=== PATIENT | female | born 1930 | race Caucasian/White ===

== ENCOUNTER 2016-10-09 11:32 | Day surgery (SDC) | payer MEDICARE ==
[2016-10-09] MEDS ORDERED: LIDOCAINE 2% MDV (20MG/ML) 20ML VIAL IV ONE (14:06)
--- NOTE | 2016-10-12 09:10 | Operative Note ---
DATE OF SURGERY: 10/09/2016 SURGEON: Ashwini Vasquez MD OPERATION: COLONOSCOPY. INDICATIONS: This is an 86-year-old female with history of unexplained diarrhea who presented for colonoscopy. POSTOPERATIVE DIAGNOSIS: Normal colon. ANESTHESIA: Per the department of anesthesia, the pulse oximetry was monitored throughout the duration of the procedure to maintain O2 saturation of 90% or greater. Supplemental oxygen was administered via nasal cannula. Cardiac and vital signs were monitored throughout the duration of the procedure, and they were stable. Description of the procedure of colonoscopy and risks and benefits of the procedure including the risk of bleeding and perforation, among others, were explained to the patient who voiced understanding and consented to have the procedure done. Physical exam was performed, and the patient was found stable for sedation. PROCEDURE: The patient was then placed in the left lateral position, and sedation was initiated. Digital rectal exam was performed and showed some external hemorrhoids with no palpable rectal masses. The Olympus PCF-180AL colonoscope was then inserted into the rectum under direct visualization and advanced to the cecum without difficulty. The ileocecal valve and appendiceal orifice were identified and photographed. The colonic mucosa was carefully examined upon introduction of the colonoscope. There were no lesions noted. The colonoscope was then withdrawn while carefully examining the colonic mucosal surfaces. No lesions were noted. Multiple random biopsies were obtained to rule out microscopic colitis. In the rectum, retroflexion was performed and it was normal. The colonoscope was then withdrawn, and the procedures were terminated. The patient tolerated the procedure well without any immediate complications. She remained with stable vital signs and was transferred to the recovery room. RECOMMENDATIONS: 1. The patient should go on a high-fiber diet. 2. We will see her back in the office as needed. Thank you for allowing me to participate in the care of your patient. Ashwini Vasquez MD CC: Estefania BATISTA
== END 2016-10-09 13:50 | disposition home or self-care (01) ==
LOC: HOP 11:32
PROVIDERS: ATTEND Internal Medicine Gastroenterology
DX: R19.7 Diarrhea, unspecified (principal); E78.00 Pure hypercholesterolemia, unspecified; K59.1 Functional diarrhea

== ENCOUNTER 2017-12-31 12:55 | Inpatient (IN) | payer MEDICARE ==
[2017-12-31 14:09] LABS: HEMATOCRIT 42.1 % (35.0-47.0); HEMOGLOBIN 14.2 gm/dl (11.6-16.0); MEAN CORPUSCULAR HEMOGLOBIN 30.3 pg (27-33); MEAN CORPUSCULAR HGB CONC 33.7 g/dl (32-36); MEAN PLATELET VOLUME 10.6 fl (7.4-10.4); PLATELET COUNT 248 K/uL (130-400); RED BLOOD COUNT 4.68 M/uL (3.80-5.40); RED CELL DISTRIBUTION WIDTH 14.1 % (11.5-14.5); WHITE BLOOD COUNT W/O DIFF 6.8 K/uL (4.2-12.2)
[2017-12-31 14:17] LABS: BLOOD UREA NITROGEN 16 mg/dL (8-23); CREATININE 0.8 mg/dL (0.5-0.9); EST GLOMERULAR FILTRATION RATE > 60 mL/min; TOTAL PROTEIN 6.8 g/dL (6.6-8.7)
[2017-12-31 14:19] LABS: GLUCOSE,RANDOM 116 mg/dL (74-109)
[2017-12-31 14:22] LABS: ALB/GLOB RATIO 1.4 (1.1-1.8); ALKALINE PHOSPHATASE 58 U/L (35-104); ALT/SGPT 19 U/L (<33); AST/SGOT 28 U/L (10.0-35.0)
[2017-12-31 14:35] LABS: PLATELET ESTIMATE NORMAL (NORMAL)
--- NOTE | 2017-12-31 15:07 | Emergency Department Record ---
History of Present Illness - General Chief Complaint: General Stated Complaint: SENT BY NEED INFUSION? Time Seen by Provider: 12/31/17 13:45 Source: Patient Mode of Arrival: Ambulatory Limitations: No limitations - History of Present Illness Initial comments: pt was sent over from [place] office for a low sodium. she also according to psychiatric np has been passing out. Onset/Timin -: Days(s) Associated Symptoms: Weakness - Dolores Coma Scale Eye Response: (4) Open spontaneously Motor Response: (6) Obeys commands Verbal Response: (5) Oriented Dolores Total: 15 - Related Data Home Medications Medication Instructions Recorded Confirmed Last Taken Acetaminophen [Non-Aspirin] 325 mg PO Q4H PRN 12/31/17 12/31/17 Unknown Mesalamine [Asacol Hd] 800 mg PO BID PRN 12/31/17 12/31/17 Unknown Allergies Allergy/AdvReac Type Severity Reaction Status Date / Time sulindac Allergy DIARRHEA Verified 12/31/17 13:12 Travel Screening - Travel/Exposure Within Last 30 Days Have you traveled within the last 30 days?: No - Travel/Exposure Within Last Year Have you traveled outside the [place] in the last year?: No - Additonal Travel Details Have you been exposed to anyone with a communicable illness?: No - Travel Symptoms Symptom Screening: None Review of Systems Reviewed: No additional complaints except as noted below Constitutional: Reports: As per HPI, Weakness. Denies: Chills, Fever, Malaise, Night sweats, Weight change Eyes: Reports: As per HPI. Denies: Eye discharge, Eye pain, Photophobia, Vision change ENT: Reports: As per HPI. Denies: Congestion, Dental pain, Ear pain, Epistaxis , Hearing loss, Throat pain Respiratory: Reports: As per HPI. Denies: Cough, Dyspnea, Hemoptysis, Stridor, Wheezes Cardiovascular: Reports: As per HPI. Denies: Arrhythmia, Chest pain, Dyspnea on exertion, Edema, Murmurs, Orthopnea, Palpitations, Paroxysmal nocturnal dyspnea, Rheumatic Fever, Syncope Endocrine: Reports: As per HPI. Denies: Fatigue, Heat or cold intolerance, Polydipsia, Polyuria Gastrointestinal: Reports: As per HPI. Denies: Abdominal pain, Constipation, Diarrhea, Hematemesis, Hematochezia, Melena, Nausea, Vomiting Genitourinary: Reports: As per HPI. Denies: Abnormal menses, Discharge, Dyspareunia, Dysuria, Frequency, Hematuria, Incontinence, Retention, Urgency Musculoskeletal: Reports: As per HPI. Denies: Arthralgia, Back pain, Gout, Joint swelling, Myalgia, Neck pain Skin: Reports: As per HPI. Denies: Bruising, Change in color, Change in hair/ nails, Lesions, Pruritus, Rash Neurological: Reports: As per HPI, Weakness. Denies: Abnormal gait, Confusion, Headache, Numbness, Paresthesias, Seizure, Tingling, Tremors, Vertigo Psychiatric: Reports: As per HPI. Denies: Anxiety, Auditory hallucinations, Depression, Homicidal thoughts, Suicidal thoughts, Visual hallucinations Hematological/Lymphatic: Reports: As per HPI. Denies: Anemia, Blood Clots, Easy bleeding, Easy bruising, Swollen glands Past Medical History - SOCIAL HISTORY Smoking Status: Never smoker Alcohol Use: None Drug Use: None - RESPIRATORY Hx Respiratory Disorders: No - CARDIOVASCULAR Hx Cardio Disorders: Yes Hx Hypertension: Yes Comment:: high cholesterol - NEURO Hx Neuro Disorders: No - GI Hx GI Disorders: No Comment:: diarrhea - Hx Genitourinary Disorders: No - ENDOCRINE Hx Endocrine Disorders: Yes Hx Thyroid Disease: Yes (hypo) - MUSCULOSKELETAL Hx Musculoskeletal Disorders: Yes Hx Arthritis: Yes Comment:: bursitis - PSYCH Hx Psych Problems: No - HEMATOLOGY/ONCOLOGY Hx Hematology/Oncology Disorders: No Family Medical History Any Significant Family History?: Yes Hx HTN: Mother Physical Exam - General General Appearance: Alert, Oriented x3, Cooperative, Mild distress - Head Head exam: Normal inspection - Eye Eye exam: Normal appearance, PERRL, EOMI Pupils: Normal accommodation - ENT ENT exam: Normal exam, Mucous membranes moist, Normal external ear exam, Normal orophraynx, TM's normal bilaterally Ear exam: Normal external inspection. negative: External canal tenderness Nasal Exam: Normal inspection. negative: Discharge, Sinus tenderness Mouth exam: Normal external inspection, Tongue normal Teeth exam: Normal inspection. negative: Dental caries Throat exam: Normal inspection. negative: Tonsillar erythema, Tonsillar exudate - Neck Neck exam: Normal inspection, Full ROM. negative: Tenderness - Respiratory Respiratory exam: Normal lung sounds bilaterally. negative: Respiratory distress - Cardiovascular Cardiovascular Exam: Regular rate, Normal rhythm, Normal heart sounds - GI/Abdominal GI/Abdominal exam: Soft, Normal bowel sounds. negative: Tenderness - Rectal Rectal exam: Deferred - exam: Deferred - Extremities Extremities exam: Normal inspection, Full ROM, Normal capillary refill. negative: Tenderness - Back Back exam: Reports: Normal inspection, Full ROM. Denies: Muscle spasm, Rash noted, Tenderness - Neurological Neurological exam: Alert, Normal gait, Oriented X3, Reflexes normal - Psychiatric Psychiatric exam: Normal affect, Normal mood - Skin Skin exam: Dry, Intact, Normal color, Warm Course Vital Signs 12/31/17 13:16 Temperature 97.8 F Pulse Rate 79 Respiratory 18 Rate Blood Pressure 122/67 Pulse Ox 97 Medical Decision Making - Lab Data Result diagrams: 12/31/17 13:50 12/31/17 13:50 Lab Results 12/31/17 12/31/17 Range/Units 13:50 13:50 WBC 6.8 (4.2-12.2) K/uL RBC 4.68 (3.80-5.40) M/uL Hgb 14.2 (11.6-16.0) gm/dl Hct 42.1 (35.0-47.0) % MCV 90.0 (81-97) fl MCH 30.3 (27-33) pg MCHC 33.7 (32-36) g/dl RDW 14.1 (11.5-14.5) % Plt Count 248 (130-400) K/uL MPV 10.6 H (7.4-10.4) fl Neutrophils % 82.0 H (47-80) % Eosinophils % Not Reportable Basophils % Not Reportable Lymphocytes 12.0 L (16-45) % Monocytes 6.0 (0-9) % Platelet Estimate Normal (NORMAL) RBC Morphology Normal Sodium 124 L (136-145) mmol/L Potassium 4.8 H (3.4-4.5) mmol/L Chloride 86 L (98-107) mmol/L Carbon Dioxide 26.0 (22-29) mmol/L Anion Gap 12.0 (7-16) BUN 16 (8-23) mg/dL Creatinine 0.8 (0.5-0.9) mg/dL Estimated GFR > 60 mL/min Random Glucose 116 H (74-109) mg/dL Calcium 9.0 (8.8-10.2) mg/dL Total Bilirubin 0.50 (0.2-1.0) mg/dL AST 28 (10.0-35.0) U/L ALT 19 (<33) U/L Alkaline Phosphatase 58 (35-104) U/L Total Protein 6.8 (6.6-8.7) g/dL Albumin 4.0 (4.0-5.0) g/dL Globulin 2.8 (1.4-4.8) gm/dL Albumin/Globulin Ratio 1.4 (1.1-1.8) Disposition Disposition: Admit Clinical Impression: Hyponatremia Disposition: Still a Patient at [facility] Decision to Admit: Admit from ER Decision to Admit Date: 12/31/17 Decision to Admit Time: 15:06 Forms: Patient Portal Access Quality - Quality Measures Quality Measures: N/A - Blood Pressure Screening Does Patient Have Any of the Following: No Blood Pressure Classification: Pre-Hypertensive BP Reading Systolic Measurement: 122 Diastolic Measurement: 67 Screening for High Blood Pressure: < Pre-Hypertensive BP, F/U Documented > [ [id number]] Pre-Hypertensive Follow-up Interventions: Follow-up with rescreen every year.
[2017-12-31] MEDS ORDERED: LISINOPRIL 5 MG TABLET PO SCH (16:55)
[2017-12-31] MEDS ORDERED: ACETAMINOPHEN 325 MG TAB PO PRN (16:55)
[2017-12-31] MEDS ORDERED: LEVOTHYROXINE SODIUM 88 MCG TABLET PO SCH (16:55)
[2017-12-31] MEDS ORDERED: 0.9 % SODIUM CHLORIDE 1000ML 1,000 ML IV PRN ×2 (20:58→22:52)
[2017-12-31 21:29] LABS: OSMOLALITY,SERUM 266 mOsm/kg (280-295)
[2017-12-31 21:33] LABS: OSMOLALITY,URINE 372 mOsm/kg (250-1200)
[2017-12-31] MEDS: LISINOPRIL 5 MG TABLET PO SCH (22:21)
[2017-12-31] MEDS: LEVOTHYROXINE SODIUM 88 MCG TABLET PO SCH (22:21)
--- NOTE | 2018-01-01 09:09 | History & Physical ---
History of Present Illness - Date of Service Date of Service for History & Physical: 01/01/18 - History of Present Illness Admitting Diagnosis: hyponatremia and syncope History of Present Illness: Inna Cid is an 87 y/o female sent to ED by PCP for sodium level of 126 in the office with associated syncopal episodes. Patient seen by PCP 12/30 for generalized malaise, weight loss of over 20lb, persistent diarrhea since September, dizziness and recent syncopal episode. Labs drawn at that time showing Na level 126, K+ 5.2, TSH 3.33. 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 Has had chronic diarrhea since 2007 after taking Suldinac for her OA. After stopping the Suldinac she reports diarrhea had resolved but had been having intermittent diarrhea episodes about every 2 years. Last colonoscopy was 1 year ago and was started on Asacol for this. SHe followed up with [facility] in early November this year for the chronic diarrhea and had been given dietary recommendations as though she was having food intolerance. Continued with persistent diarrhea and was started on Budenonide by [facility] which caused the malaise, dizziness, fatigue. Her last Budesonide was 12/27/17. Her next appt with Dr Vasquez is 01/04/18 for EGD. She was recently started on Budesonide 9mg for colitis and since starting it has had metallic taste in her mouth and having difficulty swallowing. Had a syncopal episode 2 years ago, reports she was worked up and was found cardiac status to be normal and was diagnosed with a vagal episode. Last normal Na level was 138 on 08/04/17. PMH includes chronic diarrhea, colitis, hypothyroidism, HTN, OP, hyperlipidemia, venous insufficiency, OA While in ED sodium 124, potassium 4.8, EKG NSR. Urine sodium, serum and urine osmolality pending. Admitted to the floor for further observation, desk monitor, sodium replacement 01/01/18- sitting in chair comfortably. Reports she is feeling better today since starting IV fluids, generalized malaise is nearly resolved, no further dizziness. Has been trying to eat but still reports metallic taste and states food just doesn't taste good but knows she needs to eat. Did have an ensure last night and states "that went down well". No recent antibiotic use. Travel Screening - Travel/Exposure Within Last 30 Days Have you traveled within the last 30 days?: No - Travel/Exposure Within Last Year Have you traveled outside the [place] in the last year?: No - Additonal Travel Details Have you been exposed to anyone with a communicable illness?: No - Travel Symptoms Symptom Screening: None Review of Systems Constitutional: Reports: As per HPI, Weakness. Denies: Chills, Fever, Malaise, Night sweats, Weight change Eyes: Reports: As per HPI. Denies: Eye discharge, Eye pain, Photophobia, Vision change ENT: Reports: As per HPI. Denies: Congestion, Dental pain, Ear pain, Epistaxis , Hearing loss, Throat pain Respiratory: Reports: As per HPI. Denies: Cough, Dyspnea, Hemoptysis, Stridor, Wheezes Cardiovascular: Reports: As per HPI. Denies: Arrhythmia, Chest pain, Dyspnea on exertion, Edema, Murmurs, Orthopnea, Palpitations, Paroxysmal nocturnal dyspnea, Rheumatic Fever, Syncope Endocrine: Reports: As per HPI. Denies: Fatigue, Heat or cold intolerance, Polydipsia, Polyuria Gastrointestinal: Reports: As per HPI. Denies: Abdominal pain, Constipation, Diarrhea, Hematemesis, Hematochezia, Melena, Nausea, Vomiting Genitourinary: Reports: As per HPI. Denies: Abnormal menses, Discharge, Dyspareunia, Dysuria, Frequency, Hematuria, Incontinence, Retention, Urgency Musculoskeletal: Reports: As per HPI. Denies: Arthralgia, Back pain, Gout, Joint swelling, Myalgia, Neck pain Skin: Reports: As per HPI. Denies: Bruising, Change in color, Change in hair/ nails, Lesions, Pruritus, Rash Neurological: Reports: As per HPI, Weakness. Denies: Abnormal gait, Confusion, Headache, Numbness, Paresthesias, Seizure, Tingling, Tremors, Vertigo Psychiatric: Reports: As per HPI. Denies: Anxiety, Auditory hallucinations, Depression, Homicidal thoughts, Suicidal thoughts, Visual hallucinations Hematological/Lymphatic: Reports: As per HPI. Denies: Anemia, Blood Clots, Easy bleeding, Easy bruising, Swollen glands Past Medical History - SOCIAL HISTORY Smoking Status: Never smoker Alcohol Use: Rare Drug Use: None - RESPIRATORY Hx Respiratory Disorders: No - CARDIOVASCULAR Hx Cardio Disorders: Yes Hx Hypertension: Yes - NEURO Hx Neuro Disorders: No - GI Hx GI Disorders: No Comment:: diarrhea - Hx Genitourinary Disorders: No - ENDOCRINE Hx Endocrine Disorders: Yes Hx Thyroid Disease: Yes (hypo) - MUSCULOSKELETAL Hx Musculoskeletal Disorders: Yes Hx Arthritis: Yes Comment:: bursitis - PSYCH Hx Psych Problems: No - HEMATOLOGY/ONCOLOGY Hx Hematology/Oncology Disorders: No Family Medical History Any Significant Family History?: Yes Hx HTN: Mother H&P Meds/Allergies - Allergies Allergies: Allergies Allergy/AdvReac Type Severity Reaction Status Date / Time sulindac Allergy DIARRHEA Verified 12/31/17 13:12 - Home Medications Home Medications Medication Instructions Recorded Confirmed Last Taken Acetaminophen [Non-Aspirin] 325 mg PO Q4H PRN 12/31/17 12/31/17 Unknown Mesalamine [Asacol Hd] 800 mg PO BID PRN 12/31/17 12/31/17 Unknown - Active Medications Active Medications: Current Medications Acetaminophen (Tylenol 325mg) 650 mg PO Q6H PRN PRN Reason: PAIN - MILD(1-4)/FEVER Sodium Chloride () 1,000 mls @ 75 mls/hr IV .[id number] PRN PRN Reason: LARGE VOLUME IV Levothyroxine Sodium (Synthroid) 88 mcg PO QHS [facility] Last Admin: 12/31/17 22:21 Dose: 88 mcg Lidocaine (Lidoderm) 1 each TOP DAILY [facility] Lisinopril (Zestril) 5 mg PO QHS [facility] Last Admin: 12/31/17 22:21 Dose: 5 mg Non-Formulary Medication (Lactobacillus Acidophilus/Pect [Acidophilus-Pectin Capsule]) 1 each PO DAILY [facility] Physical Exam - Vital Signs Vital Signs: Vital Signs - Last 24 Hrs Temp Pulse Pulse Resp BP BP Pulse Ox 01/01/18 08:00 97.7 F 77 18 114/57 95 01/01/18 00:00 97.6 F 71 16 157/85 98 12/31/17 21:00 71 16 12/31/17 18:21 83 18 12/31/17 16:55 98 F 83 18 141/93 95 12/31/17 15:50 74 16 120/60 98 12/31/17 13:16 97.8 F 79 18 122/67 97 - General General Appearance: Alert, Oriented x3, Cooperative Limitations: No limitations - Head Head exam: Normal inspection - Eye Eye exam: Normal appearance, PERRL, EOMI Pupils: Normal accommodation - ENT ENT exam: Normal exam, Mucous membranes moist, Normal external ear exam, Normal orophraynx, TM's normal bilaterally Ear exam: Normal external inspection. negative: External canal tenderness Nasal Exam: Normal inspection. negative: Discharge, Sinus tenderness Mouth exam: Normal external inspection, Tongue normal Teeth exam: Normal inspection. negative: Dental caries Throat exam: Normal inspection. negative: Tonsillar erythema, Tonsillar exudate - Neck Neck exam: Normal inspection, Full ROM. negative: Tenderness - Respiratory Respiratory exam: Normal lung sounds bilaterally. negative: Respiratory distress - Cardiovascular Cardiovascular Exam: Regular rate, Normal rhythm, Normal heart sounds Peripheral Pulses: 3+: Dorsalis Pedis (R), Dorsalis Pedis (L) - GI/Abdominal GI/Abdominal exam: Soft, Normal bowel sounds. negative: Tenderness - Rectal Rectal exam: Deferred - exam: Deferred - Extremities Extremities exam: Normal inspection, Full ROM, Normal capillary refill. negative: Pedal edema, Tenderness - Back Back exam: Reports: Normal inspection, Full ROM. Denies: Muscle spasm, Rash noted, Tenderness - Neurological Neurological exam: Alert, Normal gait, Oriented X3, Reflexes normal - Psychiatric Psychiatric exam: Normal affect, Normal mood - Skin Skin exam: Dry, Intact, Normal color, Warm Results - Labs Result Diagrams: 12/31/17 13:50 12/31/17 13:50 Labs Last 24 Hours: Laboratory Results - last 24 hr 12/31/17 12/31/17 12/31/17 06:15 13:50 13:50 WBC 6.8 RBC 4.68 Hgb 14.2 Hct 42.1 MCV 90.0 MCH 30.3 MCHC 33.7 RDW 14.1 Plt Count 248 MPV 10.6 H Neutrophils % 82.0 H Eosinophils % Not Reportable Basophils % Not Reportable Lymphocytes 12.0 L Monocytes 6.0 Platelet Estimate Normal RBC Morphology Normal Sodium 127 L 124 L Potassium 4.6 H 4.8 H Chloride 92 L 86 L Carbon Dioxide 25.0 26.0 Anion Gap 10.0 12.0 BUN 12 16 Creatinine 0.6 0.8 Estimated GFR > 60 > 60 Random Glucose 80 116 H Serum Osmolality Uric Acid Calcium 8.1 L 9.0 Total Bilirubin 0.50 AST 28 ALT 19 Alkaline Phosphatase 58 Total Protein 6.8 Albumin 4.0 Globulin 2.8 Albumin/Globulin Ratio 1.4 12/31/17 12/31/17 13:50 20:55 WBC RBC Hgb Hct MCV MCH MCHC RDW Plt Count MPV Neutrophils % Eosinophils % Basophils % Lymphocytes Monocytes Platelet Estimate RBC Morphology Sodium Potassium Chloride Carbon Dioxide Anion Gap BUN Creatinine Estimated GFR Random Glucose Serum Osmolality Cancelled Uric Acid 4.70 Calcium Total Bilirubin AST ALT Alkaline Phosphatase Total Protein Albumin Globulin Albumin/Globulin Ratio VTE H&P Assessment - Risk for VTE Risk for VTE: Yes Risk Level: Moderate Risk Assessment Date: 01/01/18 Risk Assessment Time: 09:09 VTE Orders Placed or Will Be Placed: Yes Plan - Inpatient Certification Inpatient Certification: Admit to inpatient care: Based on my medical assessment, after consideration of patient's risk factors (age, co-morbidities and patient presenting symptoms and acuity), I expect that this patient will remain in the hospital greater than or equal to two midnights and that the services needed warrant inpatient care because: Patient Risk Factors: [advanced age, hyponatremia, chronic diarrhea] Estimated length of stay: [48-72 hours] The patient may reasonably be expected to be discharged or transferred to a hospital within 96 hours after admission to [facility]. Services needed: [nursing, IV fluids, PT/OT] Post hospital care (if known): [] I certify that my determination is in accordance with my understanding of Medicare requirements for reasonable and necessary inpatient services. 01/01/18 09:09 - Detailed Diagnosis and Plan (1) Hyponatremia Current Visit: Yes Status: Acute Base Code: E87.1 - HYPO-OSMOLALITY AND HYPONATREMIA Comment: 01/01/18 - Na 124 in ED - serum osmolality 266 - awaiting urine osmolality and sodium - stool studies ordered r/o acute infectious process - gentle IV hydration with NS @ 75ml/hr - strict I&O. Should urine output exceed 100ml/hr will adjust sodium replacement - chronic history of diarrhea/colitis - follows with Dr Vasquez (GI), next appointment 01/04/18 for EGD - recently began Budesonide 9mg for colitis with subsequent metallic taste in mouth, difficulty swallowing- stopped taking 12/29/17 - syncopal episode 12/29- stopped taking lisinopril at that time for fear of hypotension and dehydration (2) HTN (hypertension) Current Visit: Yes Status: Acute Base Code: I10 - ESSENTIAL (PRIMARY) HYPERTENSION Comment: 01/01/18 - Lisinopril 10mg QD (3) Hypothyroid Current Visit: Yes Status: Acute Base Code: E03.9 - HYPOTHYROIDISM, UNSPECIFIED Comment: 01/01/18 - TSH 12/30- 3.33 - continue Synthroid 88mcg QD (4) DVT prophylaxis Current Visit: No Status: Acute Base Code: [id number] - Comment: 12/31/17 - nursing to encourage frequent ambulation (5) Full code status Current Visit: No Status: Acute Base Code: Z78.9 - OTHER SPECIFIED HEALTH STATUS Comment: 01/01/18
[2018-01-01 11:24] LABS: BLOOD UREA NITROGEN 12 mg/dL (8-23); CREATININE 0.6 mg/dL (0.5-0.9); EST GLOMERULAR FILTRATION RATE > 60 mL/min; GLUCOSE,RANDOM 80 mg/dL (74-109)
[2018-01-01] MEDS: LIDOCAINE 5% PATCH TOP SCH (11:43)
[2018-01-01] MEDS: PSYLLIUM HUSK/ASPARTAME 3.4 GM POWD.PACK PO SCH (11:43)
[2018-01-01] MEDS: LISINOPRIL 5 MG TABLET PO SCH (23:03)
[2018-01-01] MEDS: LEVOTHYROXINE SODIUM 88 MCG TABLET PO SCH (23:03)
[2018-01-02 07:10] LABS: BLOOD UREA NITROGEN 9 mg/dL (8-23); CREATININE 0.4 mg/dL (0.5-0.9); EST GLOMERULAR FILTRATION RATE > 60 mL/min; GLUCOSE,RANDOM 85 mg/dL (74-109)
[2018-01-02] MEDS ORDERED: BIFIDOBACTERIUM INFANTIS 4 MG CAPSULE PO SCH (10:00)
--- NOTE | 2018-01-02 10:20 | Discharge Summary ---
Providers Discharge Summary Date: 01/02/18 Date of admission: 12/31/17 16:39 Expected Date of Discharge: 01/02/18 Attending physician: ROSEANNE US Primary care physician: ROSEANNE US Physical Exam - Vital Signs Vital Signs: Vital Signs - Last 24 Hrs Temp Pulse Resp BP BP Pulse Ox 01/02/18 08:56 14 01/02/18 00:00 97.5 F L 63 16 120/76 96 01/01/18 21:00 71 16 01/01/18 16:43 97.7 F 114/57 01/01/18 16:00 98.4 F 71 16 122/72 96 - General General Appearance: Alert, Oriented x3, Cooperative Limitations: No limitations - Head Head exam: Normal inspection - Eye Eye exam: Normal appearance, PERRL, EOMI Pupils: Normal accommodation - ENT ENT exam: Normal exam, Mucous membranes moist, Normal external ear exam, Normal orophraynx, TM's normal bilaterally Ear exam: Normal external inspection. negative: External canal tenderness Nasal Exam: Normal inspection. negative: Discharge, Sinus tenderness Mouth exam: Normal external inspection, Tongue normal Teeth exam: Normal inspection. negative: Dental caries Throat exam: Normal inspection. negative: Tonsillar erythema, Tonsillar exudate - Neck Neck exam: Normal inspection, Full ROM. negative: Tenderness - Respiratory Respiratory exam: Normal lung sounds bilaterally. negative: Respiratory distress - Cardiovascular Cardiovascular Exam: Regular rate, Normal rhythm, Normal heart sounds Peripheral Pulses: 3+: Dorsalis Pedis (R), Dorsalis Pedis (L) - GI/Abdominal GI/Abdominal exam: Soft, Normal bowel sounds. negative: Tenderness - Rectal Rectal exam: Deferred - exam: Deferred - Extremities Extremities exam: Normal inspection, Full ROM, Normal capillary refill. negative: Pedal edema, Tenderness - Back Back exam: Reports: Normal inspection, Full ROM. Denies: Muscle spasm, Rash noted, Tenderness - Neurological Neurological exam: Alert, Normal gait, Oriented X3, Reflexes normal - Psychiatric Psychiatric exam: Normal affect, Normal mood - Skin Skin exam: Dry, Intact, Normal color, Warm Hospitalization - Hospitalization Admission Diagnosis: hyponatremia and syncope - Problem List/Discharge Diagnosis (1) Hyponatremia Status: Acute Base Code: E87.1 - HYPO-OSMOLALITY AND HYPONATREMIA Comment: - Na 124 in ED-->131 - serum osmolality 266 - awaiting urine sodium - urine osmolality normal - stool studies negative for acute process - gentle IV hydration with NS @ 75ml/hr - strict I&O. Should urine output exceed 100ml/hr will adjust sodium replacement - chronic history of diarrhea/colitis - follows with Dr Vasquez (GI), next appointment 01/04/18 for EGD - recently began Budesonide 9mg for colitis with subsequent metallic taste in mouth, difficulty swallowing- stopped taking 12/29/17 - syncopal episode 12/29- stopped taking lisinopril at that time for fear of hypotension and dehydration - Metamucil given to help loose stools- did have improvement - Advised she drink 8oz broth daily while having persistent diarrhea (2) HTN (hypertension) Status: Acute Base Code: I10 - ESSENTIAL (PRIMARY) HYPERTENSION Comment: 01/02 - Lisinopril 10mg QD (3) Hypothyroid Status: Acute Base Code: E03.9 - HYPOTHYROIDISM, UNSPECIFIED Comment: 01/02/18 - TSH 12/30- 3.33 - continue Synthroid 88mcg QD (4) DVT prophylaxis Status: Acute Base Code: [id number] - Comment: 01/02/18 - nursing to encourage frequent ambulation (5) Full code status Status: Acute Base Code: Z78.9 - OTHER SPECIFIED HEALTH STATUS Comment: - Hospitalization Course Disposition: Home, Self-Care Hospital Course: Inna Cid is an 87 y/o female sent to ED by PCP for sodium level of 126 in the office with associated syncopal episodes. Patient seen by PCP 12/30 for generalized malaise, weight loss of over 20lb, persistent diarrhea since September, dizziness and recent syncopal episode. Labs drawn at that time showing Na level 126, K+ 5.2, TSH 3.33. 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 Has had chronic diarrhea since 2007 after taking Suldinac for her OA. After stopping the Suldinac she reports diarrhea had resolved but had been having intermittent diarrhea episodes about every 2 years. Last colonoscopy was 1 year ago and was started on Asacol for this. SHe followed up with [facility] in early November this year for the chronic diarrhea and had been given dietary recommendations as though she was having food intolerance. Continued with persistent diarrhea and was started on Budenonide by [facility] which caused the malaise, dizziness, fatigue. Her last Budesonide was 12/27/17. Her next appt with Dr Vasquez is 01/04/18 for EGD. She was recently started on Budesonide 9mg for colitis and since starting it has had metallic taste in her mouth and having difficulty swallowing. Had a syncopal episode 2 years ago, reports she was worked up and was found cardiac status to be normal and was diagnosed with a vagal episode. Last normal Na level was 138 on 08/04/17. PMH includes chronic diarrhea, colitis, hypothyroidism, HTN, OP, hyperlipidemia, venous insufficiency, OA While in ED sodium 124, potassium 4.8, EKG NSR. Urine sodium, serum and urine osmolality pending. Admitted to the floor for further observation, personnel monitor, sodium replacement 01/01/18- sitting in chair comfortably. Reports she is feeling better today since starting IV fluids, generalized malaise is nearly resolved, no further dizziness. Has been trying to eat but still reports metallic taste and states food just doesn't taste good but knows she needs to eat. Did have an ensure last night and states "that went down well". No recent antibiotic use. 01/02/18- had significant improvement in dizziness and feelings of malaise after initiation of IV fluids. Had been ambulating the halls frequently during her stay. Feels asymptomatic today. Sodium improved nicely with IV fluids and fluid restriction. Work up for SIADH negative. She responded well to metamucil. Encouraged her to drink 8oz broth daily while she was still having diarrhea. Is due to have EGD tomorrow as scheduled. 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 EKG NOW Abnormal Labs: Abnormal Lab Results 12/31/17 12/31/17 12/31/17 Range/Units 13:50 13:50 17:57 MPV 10.6 H (7.4-10.4) fl Neutrophils % 82.0 H (47-80) % Lymphocytes 12.0 L (16-45) % Sodium 124 L (136-145) mmol/L Potassium 4.8 H (3.4-4.5) mmol/L Chloride 86 L (98-107) mmol/L Creatinine (0.5-0.9) mg/dL Random Glucose 116 H (74-109) mg/dL Serum Osmolality 266 L (280-295) mOsm/kg Calcium (8.8-10.2) mg/dL 01/01/18 01/02/18 Range/Units 06:15 06:15 MPV (7.4-10.4) fl Neutrophils % (47-80) % Lymphocytes (16-45) % Sodium 127 L 131 L (136-145) mmol/L Potassium 4.6 H (3.4-4.5) mmol/L Chloride 92 L 96 L (98-107) mmol/L Creatinine 0.4 L (0.5-0.9) mg/dL Random Glucose (74-109) mg/dL Serum Osmolality (280-295) mOsm/kg Calcium 8.1 L 7.9 L (8.8-10.2) mg/dL Condition at Discharge: (1) Good Discharge Medications - Discharge Medications Home Medications: Ambulatory Orders Calcium Carb, Citrate/Vit D3 [Calcium + D3 ER Tablet] 1 each PO DAILY 08/20/15 [ Last Taken 1 Day Ago ~05/21/16] Cholecalciferol (Vitamin D3) [Vitamin D3] 1,000 unit PO DAILY tab 08/20/15 [ Last Taken 1 Day Ago ~05/21/16] Gingko Biloba 1 tab PO DAILY 08/20/15 [Last Taken 1 Day Ago ~05/21/16] Biotin 1,500 mcg PO DAILY cap 02/20/16 [Last Taken 1 Day Ago ~05/21/16] Lactobacillus Acidophilus/Pect [Acidophilus-Pectin Capsule] 1 each PO DAILY cap 02/20/16 [Last Taken 1 Day Ago ~05/21/16] Budesonide [Budesonide EC] 9 mg PO QD #90 cap 12/30/17 [Last Taken Unknown] Acetaminophen [Non-Aspirin] 325 mg PO Q4H PRN 12/31/17 [Last Taken Unknown] Mesalamine [Asacol Hd] 800 mg PO BID PRN 12/31/17 [Last Taken Unknown] Acetaminophen [Tylenol 325Mg] 650 mg PO Q6H PRN tablet 01/02/18 [Last Taken Unknown] Discharge Plan - Discharge Instructions Instructions: Hyponatremia (DC) Additional Instructions: Please drink one serving beef or chicken broth daily until seen by Dr Us ([facility]) Please follow up with [facility] (Dr Us or Julianna MET[employer] TEACHER next week) Continue current medications except Potassium tablets May move forward with EGD as scheduled next week Continue over the counter Metamucil daily Quality Measures - Quality Measures Quality Measures: Advance Directives, Documentation of Current Medications in Medical Record, Elder Maltreatment Screen and Follow-Up Plan, Screening for High Blood Pressure and F/U Documented - Current Medications Quality Measure: Measure #130: Documentation of Current Medications Documentation of Current Medications: <Current Medications Documented/Reviewed> [[id number]] - Blood Pressure Screening Quality Measure: Screening for High Blood Pressure and Follow-Up Documented Does Patient Have Any of the Following: Active Dx of HTN Blood Pressure Classification: Normal BP Reading Systolic Measurement: 114 Diastolic Measurement: 57 Screening for High Blood Pressure: Patient Exclusion, Hx of HTN [G9744] - Advance Directives Quality Measure: Measure #47: Care Plan Advance Directives Established: Yes Advance Directives Information Provided To Patient: No Advance Directives on File: No Living Will: Yes Power of Carton Inspector: Yes Power of Carton Inspector Name: VERNON CHUN Advance Care Planning: <Care Plan/Decision Maker Documented; Discussed & Documented> [1549F] - Elder Abuse Suspicion Index Screening: Elder Abuse Suspicion Index Screening Rely on people for bathing, dressing, shopping, banking, etc: No Prevented from getting food, clothes, medication, etc: No Made to feel shamed or threatened by someone: No Forced to sign papers or use money against will: No Feel afraid, touched in ways not wanted or hurt physically: No Poor eye contact, withdrawn, malnourished, cuts or bruises: No Screening Result: Negative result EASI Reference Information: Tramaine QUINONEZ, Lucita C, Lainey D, John Soler.Development and validation of a tool to assist physicians identification of elder abuse: The Elder Abuse Suspicion Index (EASI ). Journal of Elder Abuse and Neglect, 2008; 20 (3): 276-300. - Elder Maltreatment Screen Quality Measures: Elder Maltreatment Screen and Follow-Up Plan Elder Maltreatment Screen: <Negative, No Follow-Up Plan Required> [G8734]
[2018-01-02] MEDS: PSYLLIUM HUSK/ASPARTAME 3.4 GM POWD.PACK PO SCH (10:33)
[2018-01-02] MEDS: LIDOCAINE 5% PATCH TOP SCH (10:45)
== END 2018-01-02 11:39 | disposition home or self-care (01) | DRG 641 ==
LOC: ER 12:55 → MEDSURG 16:39
PROVIDERS: ADMIT Internal Medicine; ATTEND Internal Medicine
DX: E87.1 Hypo-osmolality and hyponatremia (principal); R55 Syncope and collapse; K52.9 Noninfective gastroenteritis and colitis, unspecified; R53.1 Weakness; I10 Essential (primary) hypertension; E78.00 Pure hypercholesterolemia, unspecified; E78.5 Hyperlipidemia, unspecified; E03.9 Hypothyroidism, unspecified; I87.2 Venous insufficiency (chronic) (peripheral); M19.90 Unspecified osteoarthritis, unspecified site
CPT/HCPCS: 80048; 80053; 83930; 83935; 84550; 85027; 87427; 87493; 89055; 93005; 93010; 99223; 99239; 99285

== ENCOUNTER 2018-01-04 12:04 | Emergency (ER) | payer MEDICARE ==
[2018-01-04] MEDS ORDERED: ONDANSETRON HCL IV 4 MG/2 ML VIAL IVP ONE (12:43)
[2018-01-04] MEDS ORDERED: PANTOPRAZOLE SODIUM IV 40 MG VIAL IVP ONE (12:43)
[2018-01-04] MEDS ORDERED: ACETAMINOPHEN 1,000 MG/100 ML BTL IVPB ONE (12:43)
[2018-01-04 12:52] LABS: BASO % 0.2 % (0-6); EOS % 0.2 % (0-6); GRAN % 78.7 % (47-80); HEMATOCRIT 37.8 % (35.0-47.0); HEMOGLOBIN 12.6 gm/dl (11.6-16.0); LYMPH % 16.1 % (16-45); MEAN CELL VOLUME 91.3 fl (81-97); MEAN CORPUSCULAR HEMOGLOBIN 30.4 pg (27-33); MEAN CORPUSCULAR HGB CONC 33.3 g/dl (32-36); MEAN PLATELET VOLUME 10.4 fl (7.4-10.4); MONO % 4.8 % (0-9); PLATELET COUNT 280 K/uL (130-400); RED BLOOD COUNT 4.14 M/uL (3.80-5.40); RED CELL DISTRIBUTION WIDTH 14.4 % (11.5-14.5)
--- NOTE | 2018-01-04 12:53 | Emergency Department Record ---
History of Present Illness - General Chief Complaint: Abdominal Pain Stated Complaint: ABD PAIN Time Seen by Provider: 01/04/18 12:41 Source: Patient, Family Mode of Arrival: EMS Limitations: No limitations - History of Present Illness Initial Comments: 87 yo female presents with abdominal pain. She states she had an EGD this morning with Dr Vasquez at 8:45. She states that she had a biopsy taken. She did well after waking up and had juice without pain or nausea. She went home and took her daily medications. She then developed burping, nausea, and intermittent abdominal pain. No chest pain. She called the office and was directed to the ED. MD Complaint: Abdominal pain Onset/Timin -: Hour(s) Location: Diffuse, Suprapubic Radiation: None Migration to: No migration Severity: Moderate Severity scale (1-10): 9 Quality: Cramping, Sharp Consistency: Constant Improves With: Nothing Worsens With: Nothing Associated Symptoms: Nausea - Related Data Patient : No Previous Rx's Medication Instructions Recorded Acetaminophen [Tylenol 325Mg] 650 mg PO Q6H PRN tablet 01/02/18 Oxycodone HCl/Acetaminophen 1 each PO Q6H PRN #8 tab 01/04/18 [Percocet 7.5mg/325mg] Allergies Allergy/AdvReac Type Severity Reaction Status Date / Time sulindac Allergy DIARRHEA Verified 12/31/17 13:12 Travel Screening - Travel/Exposure Within Last 30 Days Have you traveled within the last 30 days?: No Review of Systems Constitutional: Denies: Chills, Fever, Malaise, Weakness Eyes: Denies: Eye discharge ENT: Denies: Congestion, Throat pain Respiratory: Denies: Cough, Dyspnea Cardiovascular: Denies: Chest pain, Syncope Endocrine: Denies: Fatigue Gastrointestinal: Reports: Abdominal pain, Nausea. Denies: Constipation, Diarrhea, Hematemesis, Hematochezia, Melena, Vomiting Genitourinary: Denies: Dysuria, Urgency Musculoskeletal: Denies: Arthralgia, Back pain, Myalgia Skin: Denies: Bruising, Change in color, Rash Neurological: Denies: Headache Psychiatric: Denies: Anxiety Hematological/Lymphatic: Denies: Blood Clots, Easy bleeding, Easy bruising Past Medical History - SOCIAL HISTORY Smoking Status: Never smoker - RESPIRATORY Hx Respiratory Disorders: No - CARDIOVASCULAR Hx Cardio Disorders: Yes Hx Hypertension: Yes - NEURO Hx Neuro Disorders: No - GI Hx GI Disorders: No Comment:: diarrhea - Hx Genitourinary Disorders: No - ENDOCRINE Hx Endocrine Disorders: Yes Hx Thyroid Disease: Yes (hypo) - MUSCULOSKELETAL Hx Musculoskeletal Disorders: Yes Hx Arthritis: Yes Comment:: bursitis - PSYCH Hx Psych Problems: No - HEMATOLOGY/ONCOLOGY Hx Hematology/Oncology Disorders: No Family Medical History Any Significant Family History?: Yes Hx HTN: Mother Physical Exam - General General Appearance: Alert, Oriented x3, Cooperative, No acute distress Limitations: No limitations - Head Head exam: Normal inspection - Eye Eye exam: Normal appearance. negative: Conjunctival injection, Scleral icterus - ENT ENT exam: Normal exam Ear exam: Normal external inspection Nasal Exam: Normal inspection Mouth exam: Normal external inspection - Neck Neck exam: Normal inspection - Respiratory Respiratory exam: Normal lung sounds bilaterally. negative: Respiratory distress - Cardiovascular Cardiovascular Exam: Regular rate, Normal rhythm, Normal heart sounds - GI/Abdominal GI/Abdominal exam: Soft, Tenderness (very soft, mild epigastric tenderness). negative: Distended, Guarding, Rebound, Rigid - Rectal Rectal exam: Deferred - exam: Deferred - Extremities Extremities exam: Normal inspection - Back Back exam: Denies: CVA tenderness (R), CVA tenderness (L) - Neurological Neurological exam: Alert, Oriented X3 - Psychiatric Psychiatric exam: Normal affect, Normal mood - Skin Skin exam: Dry, Intact, Normal color, Warm Course Vital Signs 01/04/18 12:10 Temperature 97.3 F L Pulse Rate 64 Respiratory 20 Rate Blood Pressure 97/59 Pulse Ox 95 - Reevaluation(s) Reevaluation #1: EMR reviewed. Recent admission for low sodium at [facility]. 01/04/18 12:59 The XR was reviewed with Dr Hagan. No definite free air irregular area over the right HD may be atelectasis vs tiny FA. Radiologist recommends CT of the abdomen. 01/04/18 13:01 No acute changes on the CBC 01/04/18 13:47 Sodium is 130 otherwise no changes on the CMP 01/04/18 13:56 01/04/18 14:07 Radiology was called to expedite the read of the CT scan 01/04/18 14:24 Dr Hagan called and informed me FA is noted in the abdomen with small amount of free fluid Dr Ramirez was called and recommends transfer to the [facility] [place] Franco of the [facility] was called and accepts the patient for transfer 01/04/18 14:26 EMS called for transfer Pain is controlled. Vitals stable 01/04/18 14:28 Dr Vasquez was paged 01/04/18 14:51 EMS called for an update on delays. All local EMS called out. Alternative EMS service as all three EMS vehicles on a call. 01/04/18 15:07 [facility] available but will have to come from [place] No call back from yet. 01/04/18 15:43 EMS now in ED for transfer No call back from at this time. Repaged Medical Decision Making - Lab Data Result diagrams: 01/04/18 11:45 01/04/18 11:45 Disposition Disposition: Transfer Clinical Impression: Intra-abdominal free air of unknown etiology Abdominal pain Qualifiers: Abdominal location: unspecified location Qualified Code(s): R10.9 - Unspecified abdominal pain Disposition: Acute Care Hospital Transfer Transfer [place]: [facility] [place] For Transfer: Free intraperitoneal air Accepting Physician: James Time Discussed w/Accepting Physician: 14:24 Condition: (1) Good Prescriptions: Oxycodone HCl/Acetaminophen [Percocet 7.5mg/325mg] 1 each PO Q6H PRN #8 tab PRN Reason: Abdominal Pain Forms: Patient Portal Access Time of Disposition: 13:59 Quality - Quality Measures Quality Measures: N/A - Blood Pressure Screening Does Patient Have Any of the Following: Active Dx of HTN Blood Pressure Classification: Normal BP Reading Systolic Measurement: 97 Diastolic Measurement: 59 Screening for High Blood Pressure: Patient Exclusion, Hx of HTN [G9744]
[2018-01-04 13:08] LABS: BLOOD UREA NITROGEN 7 mg/dL (8-23)
[2018-01-04 13:09] LABS: CREATININE 0.6 mg/dL (0.5-0.9); EST GLOMERULAR FILTRATION RATE > 60 mL/min; TOTAL PROTEIN 6.2 g/dL (6.6-8.7)
[2018-01-04 13:11] LABS: GLUCOSE,RANDOM 149 mg/dL (74-109)
[2018-01-04 13:12] LABS: PARTIAL THROMBOPLASTIN TIME 23.1 SECONDS (24.5-39.1); PROTHROMBIN TIME (PATIENT) 10.6 SECONDS (9.5-12.1)
[2018-01-04 13:14] LABS: ALB/GLOB RATIO 1.5 (1.1-1.8); ALBUMIN 3.7 g/dL (4.0-5.0); ALKALINE PHOSPHATASE 48 U/L (35-104); ALT/SGPT 16 U/L (<33); AST/SGOT 25 U/L (10.0-35.0); LIPASE 59 U/L (13-60)
[2018-01-04] MEDS ORDERED: MORPHINE SULFATE 10 MG/ML VIAL IVP ONE (14:11)
[2018-01-04] MEDS ORDERED: PIPERACILLIN SODIUM/TAZOBACTAM 4.5 GM in 0.9 % SODIUM CHLORIDE 100ML 100 ML IVPB ONE (14:25)
[2018-01-04] MEDS ORDERED: 0.9 % SODIUM CHLORIDE 1000ML 1,000 ML IV ONE (14:27)
--- NOTE | 2018-01-06 10:49 | RADIOLOGY REPORT ---
DATE: 01/04/2018 at 12:50 p.m. EXAM: TWO-VIEW, ABDOMEN. HISTORY: Pain after endoscopy. TECHNIQUE: Supine and upright views. COMPARISON: Two-view, abdomen, dated 12/06/2017. FINDINGS: Diffuse osteopenia. Thoracolumbar levoscoliosis. Compression fracture of T12 and probably to a lesser degree multiple lumbar vertebrae as well, also present previously. Some bibasilar streaky atelectasis or infiltrate. Questionable small amount of free intraperitoneal air beneath the right hemidiaphragm. Follow-up abdomen CT may be useful for further evaluation. Prominent stool throughout much of the colon raising the possibility of constipation. Metallic zipper overlying the pubic symphysis presumably external to the patient, and a small metallic density overlying the right side of the pelvis and hip is also presumably external to the patient. IMPRESSION: 1. THORACOLUMBAR LEVOSCOLIOSIS, OSTEOPOROSIS, AND COMPRESSION FRACTURES IN THE SPINE. 2. BIBASILAR STREAKY ATELECTASIS OR INFILTRATE. 3. PROMINENT STOOL THROUGHOUT THE COLON SUGGESTING CONSTIPATION. 4. QUESTIONABLE SMALL AMOUNT OF FREE AIR BENEATH THE RIGHT HEMIDIAPHRAGM. CT OF THE ABDOMEN AND PELVIS SUGGESTED. JOB NUMBER: [id number] MTDD
--- NOTE | 2018-01-06 11:18 | CT SCAN REPORT ---
DATE: 01/04/2018 at 1:57 p.m. EXAM: EMERGENCY CT OF THE ABDOMEN AND PELVIS. HISTORY: Sudden-onset right upper quadrant pain following endoscopy today. TECHNIQUE: Axial CT scan of the abdomen and pelvis performed following both oral and intravenous contrast administration. Please see the medical record for contrast specifics. COMPARISON: No prior CT with which to compare. FINDINGS: Cardiomegaly. There is a small right pleural effusion and probably a tiny left pleural effusion. There is also some mild bibasilar streaky atelectasis or infiltrate. No basilar pneumothorax evident. No calcified gallstones are seen within the gallbladder. However, there is some ascites present, and there is also free intraperitoneal air. No actual extravasation of oral contrast from the visualized lower esophagus, stomach, or duodenum identified. The distal body of the stomach has a somewhat thick- walled appearance which is nonspecific, and correlation with the endoscopic findings suggested. Mild, diffuse fatty infiltration of the liver. A single small, low-attenuation mass in the left lobe measuring 12 mm in size with a CT density of 14 consistent with an incidental hepatic cyst. Small calcified splenic granulomas. No definite adrenal, pancreatic, or renal mass identified. Oral contrast given has not reached the distal small bowel or colon. There are some low- attenuation collections in the pelvis which may represent bilateral ovarian cysts measuring about 3.9 cm on the left and 3.5 cm on the right. Follow-up pelvic ultrasound could be obtained for further evaluation if clinically desired. There is moderate compression of the body of T11, particularly involving the superior endplate. Multilevel degenerative change in the lumbar spine with a thoracolumbar levoscoliosis. IMPRESSION: 1. FREE INTRAPERITONEAL AIR. GIVEN THE HISTORY OF ENDOSCOPY TODAY, THE POSSIBILITY OF PERFORATION OF THE UPPER GASTROINTESTINAL TRACT IS RAISED. A SMALL AMOUNT OF FREE FLUID, PARTICULARLY IN THE RIGHT UPPER QUADRANT SURROUNDING THE LIVER, WELL. NO ACTUAL EXTRAVASATION OF ORAL CONTRAST OF THE VISUALIZED UPPER GASTROINTESTINAL TRACT IDENTIFIED HOWEVER. 2. DIFFUSE FATTY INFILTRATION OF THE LIVER WITH A 1.2 CM HEPATIC CYST. 3. SCOLIOSIS WITH COMPRESSION FRACTURE OF T11. 4. POSSIBLE BILATERAL OVARIAN CYSTS DETAILED ABOVE. JOB NUMBER: [id number] MTDD
== END 2018-01-04 15:49 | disposition short-term general hospital (02) ==
LOC: ER 12:04
DX: K66.8 Other specified disorders of peritoneum (principal); R10.13 Epigastric pain; E87.1 Hypo-osmolality and hyponatremia; R11.0 Nausea; R14.2 Eructation; I10 Essential (primary) hypertension; Z98.890 Other specified postprocedural states
CPT/HCPCS: 74019; 74177; 80053; 83690; 85025; 85610; 85730; 96361; 96365; 96366; 96375; 99285; C9113; J2270; J2543; J7030